=== PATIENT | female | born 1990 | race Asian ===

== ENCOUNTER 2025-01-13 06:37 | Outpatient (REF) | payer OTHER, SELFPAY ==
--- NOTE | ~2025-01-13 | US_ITS ---
CLINICAL HISTORY: S P THYROIDECTOMY, NOW WITH ISSUES OF DIZZINESS GIDDINESS US Bilateral Carotid Duplex Comparison: None Findings: No significant plaque within the common carotid arteries. No significant plaque within the carotid bulbs. Normal color doppler and waveforms morphology. Peak systolic velocities: Right CCA: 160 cm/s. Right ICA: 116 cm/s. ICA/CCA ratio: 0.7 Right ECA: 130 cm/s. Right vertebral artery flow antegrade. Left CCA: 188 cm/s. Left ICA: 131 cm/s. ICA/CCA ratio: 0.6 Left ECA: 117 cm/s. Left vertebral artery flow antegrade. There is a 2.0 x 0.7 x 0.7 cm normal morphology lymph node containing a fatty hilum within the soft tissues of the left side of the neck, compatible with an inflammatory node. IMPRESSION: Normal carotid velocities, no significant stenosis (0-49% stenosis). This document has been electronically signed by: Harriet Camara MD on 01/13/2025 15:29:36
== END 2025-01-13 06:38 | disposition home or self-care (01) ==
LOC: HO.UMASIMG 06:37
PROVIDERS: Visit Provider Internal Medicine
DX: R42 Dizziness and giddiness (principal); D44.0 Neoplasm of uncertain behavior of thyroid gland; E89.0 Postprocedural hypothyroidism
CPT/HCPCS: 93880

== ENCOUNTER → 2025-01-13 10:00 | Outpatient (BNV) | payer OTHER, SELFPAY | PROVIDERS: Visit Provider Radiology Diagnostic Radiology | DX: R42 Dizziness and giddiness (principal) | CPT/HCPCS: 93880 ==